=== PATIENT | male | born 1965 | race Caucasian/White ===

== ENCOUNTER 2022-06-02 05:55 | Inpatient (IN) ==
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
[2022-06-02] MEDS ORDERED: ceFAZolin 1000MG 1,000 MG/7.5 ML SYR IV SCH (06:00)
[2022-06-02] MEDS ORDERED: GABAPENTIN 600 MG DOSE PO SCH (06:00)
[2022-06-02] MEDS ORDERED: LR 15ML/HR IV SCH (06:00)
[2022-06-02] MEDS ORDERED: ACETAMINOPHEN 500 MG TAB PO SCH (06:00)
[2022-06-02] MEDS ORDERED: CeleBREX 200 MG CAP PO SCH (06:00)
[2022-06-02] MEDS ORDERED: PROPOFOL IV EMULSION 10 MG/ML 20 ML VIAL IV ONE (06:33)
[2022-06-02] MEDS ORDERED: ROCURONIUM BROMIDE 10 MG/ML 5 ML VIAL IV ONE (06:33)
[2022-06-02] MEDS ORDERED: DEXAMETHASONE SOD INJ 4 MG/ML VIAL ONE (06:33)
[2022-06-02] MEDS ORDERED: ONDANSETRON INJ 2 MG/ML 2 ML VIAL ONE (06:33)
[2022-06-02] MEDS ORDERED: fentaNYL citrate 100 MCG/2 ML VIAL ONE ×3 (06:34→09:55)
[2022-06-02] MEDS ORDERED: SUGAMMADEX SODIUM 200 MG/2 ML VIAL IV ONE (06:38)
[2022-06-02] MEDS ORDERED: ceFAZolin 330 MG/ML 1 GM VIAL ONE (06:49)
[2022-06-02] MEDS ORDERED: BUPIVACAINE 0.25% 30 ML VIAL ONE (06:49)
[2022-06-02] MEDS ORDERED: SODIUM CHLORIDE 0.9% INJ 10 ML VIAL ONE (06:50)
[2022-06-02] MEDS ORDERED: BUPIVACAINE/EPINEPHRINE 0.25% 1:200,000 30 ML VIAL ONE (06:57)
--- NOTE | 2022-06-02 07:35 | History & Physical Bridge Note ---
Date of Service June 02, 2022 History & Physical Bridge Note I have examined the patient, reviewed the History & Physical and in the interval since the performance of the History & Physical I have noted the following changes of clinical significance: no changes noted
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
[2022-06-02] MEDS ORDERED: KETAMINE 50 MG/5 ML SYRINGE ONE (07:47)
[2022-06-02] MEDS ORDERED: MIDAZOLAM HCL 1 MG/ML 2ML VIAL ONE (07:47)
[2022-06-02] MEDS ORDERED: GLYCOPYRROLATE 0.2 MG/ML VIAL ONE (08:07)
[2022-06-02] MEDS ORDERED: FLOSEAL HEMOSTATIC MATRIX 10ML TOP ONE (09:09)
--- NOTE | 2022-06-02 09:17 | Operative Report ---
Post Operative Report Pre & Post Diagnosis Operation Date: 06/02/22 07:45 Pre-Op Diagnosis: Intervertebral Disc Disorders with Radiculopathy Lumbar spondylolisthesis L5-S1 with bilateral pars defect Post-Op Diagnosis: Same I identified the patient and participated in the time-out.: Yes Procedure Operation Date: 06/02/22 07:45 Actual Procedures #1 lumbar decompression with bilateral medial facetectomies and foraminotomies L4-L5 L5-S1. #2 posterior spinal fusion L5-S1. #3 placement posterior instrumentation L5-S1. #4 interbody fusion L5-S1. #5 placement of Spira 11 x 26 mm cage at L5-S1. #6 placement locally harvested morselized autograft in the posterior gutters. #7 placement I factor combined with V toss in interbody space and posterior lateral gutters. Surgeon Veto Salomon, Artillery Specialist Riri Kumar Estimated Blood Loss 100 Findings Consistent with Post-Op Diagnosis Specimens None Indications This is a 48-year-old male that presents above-mentioned diagnosis having injured himself after an accident at work and failing all nonoperative care he is here for surgical intervention. Description of Procedure Patient was met with identified and informed consent obtained. Patient was then taken to the operative suite underwent intubation placed in the prone position the Paramjit table top Linus frame. All bony prominences well-padded eyes inspected to ensure no external pressure placed upon them. This point the lumbar spine was prepped and draped in normal sterile fashion. Sharp dissection with the assistance of Bovie cautery was performed down to and exposing the lamina and transverse processes of L5 and sacral ala bilaterally. From caudal to cephalad fashion complete laminectomy of L5 was performed partial laminectomy of L4 was performed occluding bilateral medial facetectomies and foraminotomies. Obvious pars defect of L5 was noted bilaterally. After complete decompression pedicle screws were placed in L5 and S1 levels bilaterally with assistance of fluoroscopy and the properly sized jayy placed. By way of a transforaminal approach on the left complete discectomy of L5-S1 was performed endplates curetted to subcortical bleeding bone and a 11 x 26 mm spiral cage filled with I factor tapped in position. The rods then locked into final position bilaterally. The transverse processes of L5 and sacral ala burred to subcortical bleeding bone. I factor bone of the test and locally harvested morselized autograft was placed in the posterior gutters. 15 round VIDHYA drain inserted. The incision was then closed with 1 Vicryl the fascia 2-0 Vicryl subcutaneously and 4 Monocryl for final skin closure. Steri-Strip sterile dressings placed. Patient waken taken to PACU stable condition. Please note spinal cord monitoring was utilized at the procedure no changes noted. Lastly Riri Kumar was present out the entire procedure involved the patient positioning complex portions of the surgery and fascial closure. I attest to the content of the Intraoperative Record and any orders documented therein. Any exceptions are noted below.
[2022-06-02] MEDS ORDERED: ONDANSETRON INJ 2 MG/ML 2 ML VIAL IV PRN ×2 (09:52→10:38)
[2022-06-02] MEDS ORDERED: PROMETHAZINE HCL 12.5 MG in SODIUM CHLORIDE 0.9% 50 ML IV PRN ×2 (09:52→10:38)
[2022-06-02] MEDS ORDERED: ATROPINE SULFATE 0.1 MG/ML 10ML SYR IV PRN ×2 (09:52→11:42)
[2022-06-02] MEDS ORDERED: ePHEDrine sulfate 50 MG/ML AMP IV PRN ×2 (09:52→11:42)
[2022-06-02] MEDS ORDERED: HYDROmorphone INJ 2 MG/ML SYR/VIAL IV PRN ×2 (09:52→11:42)
[2022-06-02] MEDS: fentaNYL citrate 100 MCG/2 ML VIAL IV PRN ×3 (09:56→10:10)
--- NOTE | 2022-06-02 10:26 | Fluoroscopy Report ---
FL lumbar spine 2-3V CLINICAL HISTORY: L5-S1 DFI COMPARISON STUDY: None. FLUOROSCOPY TIME: 25 seconds. FINDINGS: 2 fluoroscopic spot images of the lumbar spine demonstrate posterior decompression and fusi on at L5-S1 with pedicle screws and rods. The hardware appears intact. A disc spacer is in place. IMPRESSION: Fluoroscopic assistance provided for L5-S1 posterior decompression and fusion ACT 112: Negative or not required by law. Electronically signed by: Reggie Chaidez M.D. 06/02/2022 10:25 AM
[2022-06-02] MEDS ORDERED: NALOXONE HCL 0.4 MG/1 ML VIAL/CARP IV PRN (10:38)
[2022-06-02] MEDS ORDERED: FAMOTIDINE 20 MG TAB PO PRN (10:38)
[2022-06-02] MEDS ORDERED: LORazepam 0.5 MG in SYRINGE 0.25 ML IV PRN (10:38)
[2022-06-02] MEDS ORDERED: ACETAMINOPHEN 1,000 MG/100 ML VIAL IV PRN (10:38)
[2022-06-02] MEDS ORDERED: ONDANSETRON 4 MG OD TAB PO PRN (10:38)
[2022-06-02] MEDS ORDERED: ALUMINUM/MAGNESIUM SUSP 30 ML UDC PO PRN (10:38)
[2022-06-02] MEDS ORDERED: HYDROmorphone INJ 0.5 MG/0.5 ML SYR IV PRN (10:38)
[2022-06-02] MEDS ORDERED: METOCLOPRAMIDE HCL INJ 5 MG/ML 2 ML VIAL IV PRN (10:38)
[2022-06-02] MEDS ORDERED: ACETAMINOPHEN 500 MG TAB PO PRN (10:38)
[2022-06-02] MEDS ORDERED: SOD PHOSPHATE/SOD BIPHOSPHATE ENEMA 132 ML BTL PR PRN (10:38)
[2022-06-02] MEDS ORDERED: HYDROmorphone INJ 1 MG/ML SYRINGE IV PRN (10:38)
[2022-06-02] MEDS ORDERED: hydrOXYzine HCl 25 MG TAB PO PRN (10:38)
[2022-06-02] MEDS ORDERED: traMADol HCL 50 MG TABLET PO PRN (10:38)
[2022-06-02] MEDS ORDERED: diphenhydrAMINE Capsule 25 MG CAP PO PRN (10:38)
[2022-06-02] MEDS ORDERED: bisacodyL 10 MG SUPP PR PRN (10:38)
[2022-06-02] MEDS ORDERED: MAGNESIUM HYDROXIDE SUSP 30 ML UDC PO PRN (10:38)
[2022-06-02] MEDS ORDERED: LORazepam 0.5 MG TAB PO PRN (10:38)
--- NOTE | 2022-06-02 10:47 | Anesthesiology Progress Note ---
Date of Service June 02, 2022 Anesthesia Post Procedure Vital Signs Vital Signs: Temp Pulse Pulse Resp BP BP Pulse Ox 06/02/22 10:30 80 14 145/86 H 94 06/02/22 10:20 84 12 141/88 H 95 06/02/22 10:10 89 12 148/85 H 93 06/02/22 10:00 89 14 140/88 98 06/02/22 09:50 98 H 18 128/92 100 06/02/22 09:40 102 H 15 139/87 99 06/02/22 09:30 36.0 C L 100 H 14 132/96 94 06/02/22 06:39 36.4 C L 66 20 128/79 97 O2 Del Method O2 Flow Rate 06/02/22 10:30 Nasal Cannula 2 06/02/22 10:20 Nasal Cannula 2 06/02/22 10:10 Room Air 06/02/22 10:00 Oxymask 4 06/02/22 09:50 Oxymask 8 06/02/22 09:40 Oxymask 10 06/02/22 09:30 Oxymask 15 06/02/22 06:39 Room Air Pain Intensity Lower Sacrum: Pain Intensity: 5 Back: Pain Intensity: 7 Transfer of Care Handoff Completed per policy Notes Mental Status: alert / awake / arousable and participated in evaluation Patient Amnestic to Procedure: Yes Nausea / Vomiting: adequately controlled Pain: adequately controlled Airway Patency, RR, SpO2: stable & adequate BP & HR: stable & adequate Hydration State: stable & adequate Anesthetic Complications: no major complications apparent
[2022-06-02] MEDS: LACTATED RINGER'S 1,000 ML IV SCH ×2 (11:20→21:55)
[2022-06-02] MEDS ORDERED: fentaNYL citrate 100 MCG/2 ML VIAL IV PRN (11:42)
[2022-06-02] MEDS: ceFAZolin 1000MG 1,000 MG/7.5 ML SYR IV SCH ×2 (15:44→23:08)
[2022-06-02] MEDS: oxyCODONE HCL IR 5 MG TAB (IMMEDIATE RELEASE) PO PRN (19:31)
[2022-06-02] MEDS: DOCUSATE SODIUM/SENNA 50/8.6MG TAB PO SCH (19:32)
[2022-06-03] MEDS: POLYETHYLENE (MIRALAX) 17 GM PACK PO SCH ×4 (06:20→23:54)
[2022-06-03] MEDS: oxyCODONE HCL IR 5 MG TAB (IMMEDIATE RELEASE) PO PRN ×3 (06:20→23:57)
[2022-06-03 08:21] LABS: Basophils # (auto) 0.06 K/uL (0-0.2); Basophils % (auto) 0.4 %; Eosinophils # (auto) 0.09 K/uL (0-0.50); Eosinophils % (auto) 0.6 %; Hematocrit (blood only) 44.6 % (40.1-51.0); Hemoglobin 14.7 g/dl (14.0-18.0); Immature Granulocytes # (auto) 0.06 K/uL (0.00-0.02); Immature Granulocytes % (auto) 0.4 %; Lymphocytes # (auto) 2.83 K/uL (1.2-3.4); Lymphocytes % (auto) 17.9 %; Mean Corpuscular Hemoglobin 27.7 pg (25.0-34.0); Mean Platelet Volume 10.9 fL (9.4-12.4); Monocytes # (auto) 1.73 K/uL (0.24-0.82); Neutrophils # (auto) 11.02 K/uL (1.4-6.5); Neutrophils % (auto) 69.7 %; Platelet Count 247 K/uL (130-400); RDW Coefficient of Variation 14.4 % (11.5-14.5); RDW Standard Deviation 43.9 fL (36.4-46.3); Red Blood Count 5.31 M/uL (4.63-6.08); White Blood Count 15.79 K/ul (4.8-10.8)
[2022-06-03] MEDS: dexAMETHasone 6 MG in SYRINGE 0 ML IV SCH (08:29)
[2022-06-03 08:40] LABS: BUN Creatinine Ratio 16.4 (10-20); Calcium 8.9 mg/dl (8.5-10.1); Creatinine Clr Calc Pharmacy 95.9 ml/min; Est GFR (African American) 118.5 ml/min; Est GFR (Non-African American) 102.2 ml/min; Potassium 4.3 mmol/L (3.5-5.1)
--- NOTE | 2022-06-03 08:42 | Orthopedic Progress Note ---
Date of Service June 03, 2022 Assessment & Plan (1) Neurogenic claudication due to lumbar spinal stenosis: Plan: At this time we will continue physical therapy monitor his VIDHYA output possible discharge home tomorrow. Admission and Anticipated Discharge Date Admission Date: June 02, 2022 Subjective Patient's back pain is controlled leg symptoms markedly improved Physical Exam Physical Exam: On exam is good strength testing appears comfortable. Results & Data ([facility]) Vital Signs (Past 12 Hours) Vital Signs Temp Pulse Pulse Resp BP Pulse Ox O2 Del Method 06/03/22 07:35 36.5 C 85 20 95/62 L 93 Room Air 06/03/22 03:07 36.6 C 88 16 121/68 91 06/02/22 21:47 36.4 C L 94 H 18 128/81 93
[2022-06-03] MEDS: DOCUSATE SODIUM/SENNA 50/8.6MG TAB PO SCH (20:16)
[2022-06-04] MEDS: POLYETHYLENE (MIRALAX) 17 GM PACK PO SCH ×2 (05:44→13:01)
[2022-06-04] MEDS: dexAMETHasone 6 MG in SYRINGE 0 ML IV SCH (09:01)
--- NOTE | 2022-06-04 10:21 | Discharge Summary ---
Date of Service June 04, 2022 Admission HPI Per Admitting Provider This is a 48-year-old male who presents with chronic persistent back and leg pain after failing course of nonoperative care is here for surgical invention. Principal Diagnosis Lumbar spinal stenosis with neurogenic claudication Discharge Data Allergies Allergy/AdvReac Type Severity Reaction Status Date / Time pregabalin [From Lyrica] Allergy Unknown Hallucinating Verified 06/02/22 06:36 & WEIRD DREAMS gabapentin AdvReac Unknown "LIKE I Verified 06/02/22 06:36 WAS DRUNK" "EQUILIBRIUM WAS OFF" Procedures Performed Operation Date: 06/02/22 07:45 Actual Procedures p L5-S1 Decompression and Fusion, Spinal Cord Monitoring(Not Applicable) - Veto Salomon DO Ordered Studies 06/02/22 07:45 [place] lumbar spine 2-3V Routine Hospital Course (1) Neurogenic claudication due to lumbar spinal stenosis: Patient underwent lumbar decompression fusion [facility] posting orthopedic for postoperative. Postop day 1 he was up and ambulating progressed to postop day #2. VIDHYA drain decreasing appropriate. Excellent strength testing. Pain well controlled. Subsequent discharge home. Discharge orders instructions from the chart for further review. Total Time Total Time Spent Total Time Spent (In Minutes): 20 minutes Discharge Plan Discharge Items Patient Disposition: Home - Self-Care Reason For Visit: Intervertebral Disc Disorders with Radiculopathy Discharge Diagnosis: Lumbar spondylolisthesis with radiculopathy Activity: As commented below Non-emergency contact: Primary Care Provider Call non-emergency contact if: you have any medication questions Follow-up/Referrals: Wilian Clarke DO [Primary Care Provider] - Diet: Regular Addtl Attending Provider Instructions: ACTIVITY RECOMMENDATIONS: SELF CARE INSTRUCTIONS AFTER THORACIC/LUMBAR FUSIONS 1. You may walk to your tolerance. It is good exercise for your legs and back. Expect some back and intermittent leg aches and pains. 2. You may perform "counter-top" level activities (make a sandwich, macario with a project, etc.). 3. No bending or lifting of more than 10 pounds or back twisting of any nature (roll like a log when turning in bed). 4. You may ride in a car for 20-30 minutes at a time. No driving until after your first visit with your doctor. 5. Frequent changes of position and restricting sitting to 30 minutes at a time will help limit the amount of back spasms and stiffness you may experience. 6. You may discontinue the use of ambulatory aids (cane, crutches, etc.) once your strength and confidence allow. 7. You may plate grinder the shower and let water strike your incision when you arrive home at least once daily. Do not take a tub bath, sit in a hot tub or go into a swimming pool until after your first recheck in the office. SPECIAL CARE INSTRUCTIONS: VERY IMPORTANT TO READ AND REVIEW A. Your surgical incision has been closed with a cosmetic suture under the skin that will dissolve in about 6 weeks. In 14 days, you can use a pair of clean scissors and cut the suture that is left outside of the skin at the ends of your incision. 1. The small skin tapes can be removed 7 days after surgery if they have not fallen off by that point. 2. You may keep the wound open to air as much as possible to promote healing after post-op day number 5 unless told otherwise by your doctor. 3. If you think the wound looks like it is becoming infected (redness or worsening drainage) and/or you are experiencing fever, chill or worsening back pain and muscle spasms, contact the office so that we may evaluate you as soon as possible. B. Complications are uncommon, but please contact us if you have any signs or symptoms of: 1. wound infection (fever higher than 102.5 degrees F, redness, separation of wound, drainage, or increasing pain from the incision) 2. blood clots in legs (pain, swelling, redness and warmth in legs) 3. urinary tract infection (fever higher than 102.5 degrees F, burning upon urination or increased frequency of urination) 4. nerve problems (inability to walk on your toes or heels, numbness, loss of bowel or bladder control) 5. any other symptoms that concern you C. Please call the office at if you have any concerns or questions about your operation or recovery. D. No smoking! Smoking drastically decreases the chance of a solid fusion. E. Do not take any anti-inflammatory medications (Indocin, Advil, Motrin, Aspirin, Naprosyn, etc.) as these may inhibit the chance of a solid fusion. Tylenol is okay to take for pain. MANAGING PAIN AFTER SPINAL SURGERY 1. Narcotic medication is intended for short-term use and will be provided for surgical pain. Surgical pain usually lasts for a period of 4-6 weeks. Narcotic medication includes Percocet, Vicodin, Darvocet, Tylenol #3 or Lortab. 2. Longer-term pain is more appropriately treated with non-narcotic medication such as Tylenol ES. 3. Muscle spasm is not appropriately treated with narcotics. Muscle relaxers such as Soma, Flexeril or Skelaxin can be used along with Tylenol ES. 4. Remember that we all live with some "aches and pains". This is not unusual or uncommon after an injury or as we get older. a. Back pain is expected and may include muscle spasms for 4 to 6 weeks after surgery. The pain should gradually improve. If the pain worsens for no apparent reason, please contact the office. b. Intermittent leg pain may also be experienced and should not be concerned about unless it worsens for no apparent reason. If so, please contact the office. 5. We will provide appropriate medication within the normal guidelines of their prescribed use. We will also be very cautious and aware of potential abuse and extended duration of patients' medication needs. a. Pain medications are for your comfort and to assist with sleep and rest so that the tissue can heal. They are not provided in order to return to normal activity and should not be used through the day. To do so or worsening pain at night can result from ongoing tissue damage and development of tolerance to the prescribed medicine. 6. Please allow 2-3 days to process refills. Prescriptions will not be mailed but must be picked up at the office. FOLLOW UP VISIT: Keep your scheduled follow-up appointment. Any questions, please call the office at . Pending Studies at Discharge: No Stand-Alone Forms: [facility], Smoking Cessation Medications and DC Order Prescriptions: New tramadol 50 mg tablet 50 mg PO Q6H PRN (Reason: pain, moderate) Qty: 30 0RF oxycodone 5 mg tablet 5 mg PO Q6H PRN (Reason: pain, severe) Qty: 30 0RF Continued baclofen 10 mg Tablet 10 mg PO TID hydrocodone-acetaminophen 7.5-325 mg Tablet 1 tab PO UD PRN (Reason: Pain) ergocalciferol (vitamin D2) [Vitamin D2] 1,250 mcg (50,000 unit) Capsule 1,250 mcg PO WK Label Comments: MONDAYS Discontinued ibuprofen 400 mg Tablet 400 mg PO UD PRN (Reason: Pain) Discharge Orders: Discharge Order (Routine); Ordered 06/04/22 Ordered By: Veto Salomon Admission Data Admit Date/Time: 06/02/22 09:20 Attending Provider: Veto Salomon Admit Provider: Veto Salomon Primary Care Provider: Wilian Clarke
== END 2022-06-04 13:59 | disposition home or self-care (01) | DRG 455 ==
LOC: ASU 05:55 → 3E 09:20